=== PATIENT | female | born 1970 | race African-American/Black ===

== ENCOUNTER 2022-02-14 17:26 | Emergency (ER) | payer OTHER ==
[2022-02-14 18:27] VITALS: BP 126/89; PULSE 96; TEMP 98.2; BMI 30.1
[2022-02-14] MEDS ORDERED: KETOROLAC TROMETHAMINE 30 MG/1 ML VIAL IM ONE (19:54)
[2022-02-14] MEDS ORDERED: KETOROLAC TROMETHAMINE 30 MG/1 ML VIAL ONE (20:00)
== END 2022-02-14 21:01 | disposition home or self-care (01) ==
LOC: JERFT 17:26 → JER 17:26 → JERFT 21:01
PROC: 3E0233Z Introduction of Anti-inflammatory into Muscle, Percutaneous Approach (ICD-10-PCS; principal; 2022-02-14)
DX: M25.511 Pain in right shoulder (principal); M54.2 Cervicalgia; V87.7XXA Person injured in collision between other specified motor vehicles (traffic), initial encounter
CPT/HCPCS: 72050-TC-FY; 73030-TC-RT-FY; 99284-25